=== PATIENT | female | born 1945 | race Caucasian/White ===

== ENCOUNTER 2018-01-01 09:29 | Inpatient (IN) | payer MEDICARE, BC ==
--- NOTE | 2018-01-01 10:18 | EDM.PDOC ---
ED HPI GENERAL MEDICAL PROBLEM - General Chief Complaint: Lower Extremity Injury/Pain Stated Complaint: FELL Time Seen by Provider: 01/01/18 10:05 Source of Information: Reports: Patient History Limitations: Reports: No Limitations - History of Present Illness INITIAL COMMENTS - FREE TEXT/NARRATIVE: She fell while at home; she has some mild pain to the left leg; it is noted to be shorter. She states while laying there she has no pain; if she moves or tries to put weight on it, she has pain. Denies hitting her head. No chest pain or SOB. 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: Neurological History: Reports: Other (See Below) Other Neuro History: geonburet - Infectious Disease History Infectious Disease History: Reports: Chicken Pox Social & Family History - Tobacco Use Smoking Status *Q: Current Every Day Smoker Years of Tobacco use: 40 Packs/Tins Daily: 0.5 Used Tobacco, but Quit: No Second Hand Smoke Exposure: Yes - Caffeine Use Caffeine Use: Reports: Coffee - Recreational Drug Use Recreational Drug Use: No Review of Systems - Review of Systems Review Of Systems: See Below Eyes: Reports: No Symptoms Respiratory: Reports: No Symptoms Cardiovascular: Reports: No Symptoms GI/Abdominal: Reports: No Symptoms Genitourinary: Reports: No Symptoms Musculoskeletal: Reports: Other (left hip pain) Skin: Reports: No Symptoms Neurological: Reports: No Symptoms Psychiatric: Reports: No Symptoms ED EXAM, GENERAL - Physical Exam Exam: See Below Exam Limited By: No Limitations General Appearance: Alert, WD/WN, No Apparent Distress. No: Moderate Distress Eye Exam: Bilateral Eye: EOMI, PERRL Ears: Normal External Exam Throat/Mouth: Normal Inspection, Normal Oropharynx, No Airway Compromise Head: Atraumatic, Normocephalic Neck: Supple, Non-Tender, Full Range of Motion Respiratory/Chest: No Respiratory Distress, Lungs Clear, Normal Breath Sounds Cardiovascular: Regular Rate, Rhythm GI/Abdominal: Normal Bowel Sounds, Soft Back Exam: Normal Inspection, Full Range of Motion Extremities: Other (left leg is shorter than right; limited rom, +dp and pt pulses. +sensation) Neurological: Alert, Oriented, CN II-XII Intact Psychiatric: Normal Affect, Normal Mood Skin Exam: Warm, Dry Course - Vital Signs Last Recorded V/S: Last Vital Signs Temp 96.6 F 01/01/18 09:48 Pulse 88 01/01/18 09:48 Resp 15 01/01/18 09:48 BP 165/85 H 01/01/18 09:48 Pulse Ox 95 01/01/18 09:48 - Orders/Labs/Meds Orders: Active Orders 24 hr Category Date Time Status Patient Status Manage Transfer [TRANSFER] Routine ADT 01/01/18 11:35 Active EKG Documentation Completion [RC] ASDIRECTED Care 01/01/18 10:51 Active Urinary Catheter Assessment [RC] ASDIRECTED Care 01/01/18 10:06 Active Urinary Catheter Insertion [Insert Urinary Catheter] [ Care 01/01/18 10:15 Ordered OM.PC] Q24H NPO Now [Nothing per Oral Now Diet] [DIET] Diet 01/01/18 Lunch Active Chest 1V Frontal [CR] Stat Exams 01/01/18 11:01 Taken UA W/MICROSCOPIC [URIN] Stat Lab 01/01/18 10:15 Ordered HYDROmorphone [Dilaudid] Med 01/01/18 11:06 Active 1 mg IVPUSH Q1H PRN Resuscitation Status Routine Resus Stat 01/01/18 11:37 Ordered EKG 12 Lead [EK] Routine Ther 01/01/18 10:50 Ordered Medication Orders Hydromorphone HCl (Dilaudid) 1 mg IVPUSH Q1H PRN PRN Reason: Pain Last Admin: 01/01/18 11:20 Dose: 1 mg Labs: Laboratory Tests 01/01/18 01/01/18 01/01/18 Range/Units 10:15 10:50 10:50 WBC 10.8 (4.5-11.0) K/uL RBC 4.83 (3.30-5.50) M/uL Hgb 14.8 (12.0-15.0) g/dL Hct 44.4 (36.0-48.0) % MCV 92 (80-98) fL MCH 31 (27-31) pg MCHC 33 (32-36) % Plt Count 414 H (150-400) K/uL Neut % (Auto) 71 H (36-66) % Lymph % (Auto) 21 L (24-44) % [place] % (Auto) 6 (2-6) % Eos % (Auto) 1 L (2-4) % Baso % (Auto) 0 (0-1) % Sodium 138 L (140-148) mmol/L Potassium 4.1 (3.6-5.2) mmol/L Chloride 102 (100-108) mmol/L Carbon Dioxide 22 (21-32) mmol/L Anion Gap 18.1 H (5.0-14.0) mmol/L BUN 12 (7-18) mg/dL Creatinine 0.6 (0.6-1.0) mg/dL Est Cr Clr Drug Dosing 80.51 mL/min Estimated GFR (MDRD) > 60 (>60) Glucose 149 H (74-106) mg/dL Calcium 8.6 (8.5-10.1) mg/dL Total Bilirubin 0.2 (0.2-1.0) mg/dL AST 4 L (15-37) U/L ALT 20 (12-78) U/L Alkaline Phosphatase 86 (46-116) U/L Total Protein 7.1 (6.4-8.2) g/dL Albumin 3.8 (3.4-5.0) g/dL Globulin 3.3 (2.3-3.5) g/dL Albumin/Globulin Ratio 1.2 (1.2-2.2) Urine Color Yellow Urine Appearance Clear Urine pH 5.0 (4.5-8.0) Ur Specific [place] 1.010 (1.008-1.030) Urine Protein Negative (NEGATIVE) mg/dL Urine Glucose (UA) Normal (NEGATIVE) mg/dL Urine Ketones Negative (NEGATIVE) mg/dL Urine Occult Blood Negative (NEGATIVE) Urine Nitrite Negative (NEGATIVE) Urine Bilirubin Negative (NEGATIVE) Urine Urobilinogen Normal (NORMAL) mg/dL Ur Leukocyte Esterase Negative (NEGATIVE) Urine RBC 0-5 (0-5) Urine WBC 0-5 (0-5) Ur Epithelial Cells Rare Amorphous Sediment Not seen Urine Bacteria Not seen Urine Mucus Not seen Meds: Medications Generic Name Dose Route Start Last Admin Trade Name Freq PRN Reason Stop Dose Admin Hydromorphone HCl 1 mg 01/01/18 11:06 01/01/18 11:20 Dilaudid IVPUSH 1 mg Q1H PRN Administration Pain - Re-Assessments/Exams Free Text/Narrative Re-Assessment/Exam: 01/01/18 10:55 xray shows comminuted intertrochanteric fracture of left hip with medial angulation of the major distal fracture fragment. Departure - Departure Time of Disposition: 11:45 Disposition: Admitted As Inpatient 67 Condition: Fair Clinical Impression: Closed left hip fracture, Intertrochanteric fracture, hip - Discharge Information Referrals: Sai Jaime MD [Primary Care Provider] - Forms: ED Department Discharge ED Communication - ED Communication Date/Time Date: 01/01/18 Time Called: 10:56 - Discussed Case With (1) Discussed Case With (1): Other (paged orthopedic, Dr. Lea; plan is to take her to surgery today;) Person/s Notified (1): Kishor Toscano (he will come and admit patient) - Problem List Review Problem List Initiated/Reviewed/Updated: Yes - My Orders Last 24 Hours: My Active Orders 01/01/18 10:06 Urinary Catheter Assessment [RC] ASDIRECTED 01/01/18 10:15 Urinary Catheter Insertion [Insert Urinary Catheter] [OM.PC] Q24H UA W/MICROSCOPIC [URIN] Stat 01/01/18 10:50 EKG 12 Lead [EK] Routine 01/01/18 10:51 EKG Documentation Completion [RC] ASDIRECTED 01/01/18 11:01 Chest 1V Frontal [CR] Stat 01/01/18 11:06 HYDROmorphone [Dilaudid] 1 mg IVPUSH Q1H PRN 01/01/18 Lunch NPO Now [Nothing per Oral Now Diet] [DIET] - Assessment/Plan Last 24 Hours: My Active Orders 01/01/18 10:06 Urinary Catheter Assessment [RC] ASDIRECTED 01/01/18 10:15 Urinary Catheter Insertion [Insert Urinary Catheter] [OM.PC] Q24H UA W/MICROSCOPIC [URIN] Stat 01/01/18 10:50 EKG 12 Lead [EK] Routine 01/01/18 10:51 EKG Documentation Completion [RC] ASDIRECTED 01/01/18 11:01 Chest 1V Frontal [CR] Stat 01/01/18 11:06 HYDROmorphone [Dilaudid] 1 mg IVPUSH Q1H PRN 01/01/18 Lunch NPO Now [Nothing per Oral Now Diet] [DIET]
--- NOTE | 2018-01-01 10:51 | CR ---
Hip Min 1V w Pelvis Lt INDICATION: fell, left hip pain COMPARISON: None FINDINGS: 3 views. Comminuted intertrochanteric fracture left hip with medial angulation of the major distal fracture fr agment.
[2018-01-01] MEDS ORDERED: HYDROmorphone 1 MG/ML Syringe IVPUSH PRN (11:06)
--- NOTE | 2018-01-01 11:49 | PCM.HP ---
H&P History of Present Illness - General Date of Service: 01/01/18 Admit Problem/Dx: Admission Diagnosis/Problem Admission Diagnosis/Problem Fracture of hip Source of Information: Patient, Provider History Limitations: Reports: No Limitations - History of Present Illness Initial Comments - Free Text/Narative: Eloise presents to the emergency room today with left hip pain. She reports that she was making her bed this morning and got tangled up in the comforter and fell down striking her left hip on the floor. She had immediate sharp and severe pain in the left hip. The pain is worse with any sort of movement but comfortable with rest. She has never had pain like this before. She reports things were as usual prior to the fall and has not had recent difficulties with fevers, chills, shortness of breath or abdominal pain. No recent infections. She is able to walk at least 4 blocks and is limited by weakness in her legs with her history of Guillain-Xiong syndrome. She has never had general anesthesia in the past. Workup in the emergency room revealed evidence for an intertrochanteric fracture of the left hip area and she will be admitted for surgical management. 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: Neurological History: Reports: Other (See Below) Other Neuro History: geonburet - Infectious Disease History Infectious Disease History: Reports: Chicken Pox Social & Family History - Family History Neurological: Reports: CVA (Mother in her 80s) Other Family History: No family history of difficulty with anesthesia - Tobacco Use Smoking Status *Q: Current Every Day Smoker Years of Tobacco use: 40 Packs/Tins Daily: 0.5 Used Tobacco, but Quit: No Second Hand Smoke Exposure: Yes - Caffeine Use Caffeine Use: Reports: Coffee - Alcohol Use Alcohol Use History: No - Recreational Drug Use Recreational Drug Use: No H&P Review of Systems - Review of Systems: Review Of Systems: See Below Free Text/Narrative: A complete 12 point review of systems was obtained. Pertinent positives and negatives are noted in the history of present illness. All other systems were reviewed and were negative except as noted. Exam - Exam Exam: See Below - Vital Signs Vital Signs: Last Vital Signs Temp 35.9 C 01/01/18 09:48 Pulse 88 01/01/18 09:48 Resp 15 01/01/18 09:48 BP 165/85 H 01/01/18 09:48 Pulse Ox 95 01/01/18 09:48 Weight: 68.039 kg - Exam Quality Assessment: No: Supplemental Oxygen General: Alert, Oriented, Cooperative. No: Mild Distress HEENT: Conjunctiva Clear, Mucosa Moist & [place], Pupils Equal. No: Scleral Icterus Neck: Supple, Trachea Midline. No: Lymphadenopathy Lungs: Clear to Auscultation, Normal Respiratory Effort Cardiovascular: Regular Rate, Regular Rhythm. No: Systolic Murmur GI/Abdominal Exam: Normal Bowel Sounds, Soft, Non-Tender, No Distention Back Exam: Normal Inspection, Full Range of Motion Extremities: No Pedal Edema, Other (Left leg shortened and externally rotated). No: Increased Warmth Peripheral Pulses: 2+: Dorsalis Pedis (L), Dorsalis Pedis (R) Skin: Warm, Dry Neuro Extensive - Mental Status: Alert, Oriented x3, Nl Response to Commands Neuro Extensive - Motor, Sensory, Reflexes: CN II-XII Intact. No: Dysarthria, Abnormal Motor, Tremor Psychiatric: Alert, Normal Affect - Patient Data Lab Results Last 24 hrs: Laboratory Results - last 24 hr 01/01/18 01/01/18 01/01/18 Range/Units 10:15 10:50 10:50 WBC 10.8 (4.5-11.0) K/uL RBC 4.83 (3.30-5.50) M/uL Hgb 14.8 (12.0-15.0) g/dL Hct 44.4 (36.0-48.0) % MCV 92 (80-98) fL MCH 31 (27-31) pg MCHC 33 (32-36) % Plt Count 414 H (150-400) K/uL Neut % (Auto) 71 H (36-66) % Lymph % (Auto) 21 L (24-44) % [place] % (Auto) 6 (2-6) % Eos % (Auto) 1 L (2-4) % Baso % (Auto) 0 (0-1) % Sodium 138 L (140-148) mmol/L Potassium 4.1 (3.6-5.2) mmol/L Chloride 102 (100-108) mmol/L Carbon Dioxide 22 (21-32) mmol/L Anion Gap 18.1 H (5.0-14.0) mmol/L BUN 12 (7-18) mg/dL Creatinine 0.6 (0.6-1.0) mg/dL Est Cr Clr Drug Dosing 80.51 mL/min Estimated GFR (MDRD) > 60 (>60) Glucose 149 H (74-106) mg/dL Calcium 8.6 (8.5-10.1) mg/dL Total Bilirubin 0.2 (0.2-1.0) mg/dL AST 4 L (15-37) U/L ALT 20 (12-78) U/L Alkaline Phosphatase 86 (46-116) U/L Total Protein 7.1 (6.4-8.2) g/dL Albumin 3.8 (3.4-5.0) g/dL Globulin 3.3 (2.3-3.5) g/dL Albumin/Globulin Ratio 1.2 (1.2-2.2) Urine Color Yellow Urine Appearance Clear Urine pH 5.0 (4.5-8.0) Ur Specific [place] 1.010 (1.008-1.030) Urine Protein Negative (NEGATIVE) mg/dL Urine Glucose (UA) Normal (NEGATIVE) mg/dL Urine Ketones Negative (NEGATIVE) mg/dL Urine Occult Blood Negative (NEGATIVE) Urine Nitrite Negative (NEGATIVE) Urine Bilirubin Negative (NEGATIVE) Urine Urobilinogen Normal (NORMAL) mg/dL Ur Leukocyte Esterase Negative (NEGATIVE) Urine RBC 0-5 (0-5) Urine WBC 0-5 (0-5) Ur Epithelial Cells Rare Amorphous Sediment Not seen Urine Bacteria Not seen Urine Mucus Not seen Result Diagrams: 01/01/18 10:50 01/01/18 10:50 Imaging Impressions Last 24 hrs: Left hip x-ray - images personally reviewed - there is evidence for a comminuted intertrochanteric fracture of the left hip. *Q Meaningful Use (ADM) - VTE *Q VTE Pharmacological Contraindications *Q: Patient Scheduled Surgery - VTE Risk Assess *Q Each Risk Factor Represents 1 Point: None Total Score 1 Point Risk Factors: 0 Each Risk Factor Represents 2 Points: Age 60 - 74 Years Total Score 2 Point Risk Factors: 2 Each Risk Factor Represents 3 Points: None Total Score 3 Point Risk Factors: 0 Each Risk Factor Represents 5 Points: Hip, Pelvis or Leg Fracture, Less than 1 month Total Score 5 Point Risk Factors: 5 Venous Thromboembolism Risk Factor Score *Q: 7 - Problem List (1) Fracture of hip, left, closed SNOMED Code(s): 422462893 ICD Code: S72.002A - FRACTURE OF UNSP PART OF NECK OF LEFT FEMUR, INIT Status: Acute Current Visit: Yes Qualifiers: Encounter type: initial encounter Qualified Code(s): S72.002A - Fracture of unspecified part of neck of left femur, initial encounter for closed fracture (2) Tobacco dependence SNOMED Code(s): 34809543 ICD Code: F17.200 - NICOTINE DEPENDENCE, UNSPECIFIED, UNCOMPLICATED Status : Chronic Current Visit: Yes Problem List Initiated/Reviewed/Updated: Yes Orders Last 24hrs: Active Orders 24 hr Category Date Time Status Patient Status Manage Transfer [TRANSFER] Routine ADT 01/01/18 11:35 Ordered EKG Documentation Completion [RC] ASDIRECTED Care 01/01/18 10:51 Active Urinary Catheter Assessment [RC] ASDIRECTED Care 01/01/18 10:06 Active Urinary Catheter Insertion [Insert Urinary Catheter] [ Care 01/01/18 10:15 Ordered OM.PC] Q24H NPO Now [Nothing per Oral Now Diet] [DIET] Diet 01/01/18 Lunch Active Chest 1V Frontal [CR] Stat Exams 01/01/18 11:01 Taken UA W/MICROSCOPIC [URIN] Stat Lab 01/01/18 10:15 Ordered HYDROmorphone [Dilaudid] Med 01/01/18 11:06 Active 1 mg IVPUSH Q1H PRN Resuscitation Status Routine Resus Stat 01/01/18 11:37 Ordered EKG 12 Lead [EK] Routine Ther 01/01/18 10:50 Ordered Medication Orders Hydromorphone HCl (Dilaudid) 1 mg IVPUSH Q1H PRN PRN Reason: Pain Last Admin: 01/01/18 11:20 Dose: 1 mg Assessment/Plan Comment:: ASSESSMENT AND PLAN - Intertrochanteric fracture of left hip - surgical intervention planned. Patient is medically optimized and has a relatively low risk at this time. No history of cardiac disease. She is a smoker but does not have a diagnosis of COPD. No personal or family history of difficulty with anesthesia. I believe she is in optimal achievable medical condition for the proposed urgent surgery. -Consultation with Dr. Lea for surgical intervention -Pain control -Physical therapy -IV fluids Tobacco dependence - Patient is interested in a nicotine patch. 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 She also has a neurogenic bladder because of this. Maintenance issues - - DVT prophylaxis - mechanical - GI prophylaxis - Not indicated - Nutrition - Nothing by mouth until after surgery - [place] catheter - Will be placed with history of a neurogenic bladder and chronic retention requiring straight catheterization CODE STATUS - Full code Admission justification - This patient will be admitted for inpatient services and is medically appropriate meeting medical necessity for inpatient admission as outlined in my documentation. I reasonably expect the patient will require inpatient services that span a period time over 2 midnights. I reasonably expect this patient to be discharged or transferred within 96 hours [facility]. Disposition - Anticipate discharge to home with her and home care Primary care physician - none Kishor Toscano M.D.
[2018-01-01] MEDS ORDERED: Albuterol 0.083% 2.5 MG/3 ML Neb Soln NEB PRN (12:42)
[2018-01-01] MEDS ORDERED: Polyethylene Glycol 3350 Powder 17 GM Packet PO PRN (12:42)
[2018-01-01] MEDS ORDERED: Ondansetron 4 MG Tab.DIS PO PRN (12:42)
[2018-01-01] MEDS ORDERED: fentaNYL 100 MCG/2 ML SDV ONE (12:51)
[2018-01-01] MEDS ORDERED: Propofol 200 MG/20 ML SDV ONE ×2 (12:52→16:28)
[2018-01-01] MEDS ORDERED: Midazolam 1 MG/ML 2 ML SDV ONE (12:52)
[2018-01-01] MEDS ORDERED: Bupivacaine 0.75%/D5W 2 ML Amp ONE (12:54)
[2018-01-01] MEDS: Lactated Ringers 1,000 ML IV SCH (13:31)
[2018-01-01] MEDS: HYDROmorphone 0.5 MG/0.5 ML Syringe IVPUSH PRN ×2 (13:32→21:52)
[2018-01-01] MEDS: ceFAZolin 2 GM in Premix Bag 1 BAG IV ONE ×2 (15:40→18:32)
[2018-01-01] MEDS ORDERED: Phenylephrine 1% 10 MG/ML SDV ONE (16:24)
[2018-01-01] MEDS ORDERED: ePHEDrine 50 MG/ML SDV ONE (16:27)
[2018-01-01] MEDS: Bupivacaine 0.5%/EPINEPHrine 1:200,000 50 ML MDV ONE ×2 (16:29→16:45)
[2018-01-01] MEDS: Povidone-Iodine 10% Soln 118.25 ML Bottle ONE ×2 (16:30→16:35)
[2018-01-01] MEDS ORDERED: Lactated Ringers 1,000 ML ONE (16:55)
[2018-01-01] MEDS: Nicotine 14 MG/24 Hr Patch TRDERM SCH (18:31)
[2018-01-01] MEDS: oxyCODONE 5 MG Tab PO PRN (18:34)
[2018-01-01] MEDS: ceFAZolin 2 GM in Premix Bag 1 BAG IV SCH (21:45)
--- NOTE | 2018-01-01 22:49 | OR ---
DATE OF PROCEDURE: 01/01/2018 PREOPERATIVE DIAGNOSIS: Left hip subtrochanteric fracture and intertrochanteric extension. POSTOPERATIVE DIAGNOSIS: Left hip subtrochanteric fracture and intertrochanteric extension. PROCEDURE: Left hip cephalomedullary nailing. ANESTHESIA: Spinal plus conscious sedation. FLUID: Lactated Ringer solution. ESTIMATED BLOOD LOSS: 100 mL. COMPLICATION: None. SPECIMEN: None. DISCHARGE DISPOSITION: Stable to PACU. HISTORY AND INDICATIONS FOR THE PROCEDURE: The patient fell earlier today. She was brought to the emergency department. Preoperative imaging confirmed the above-mentioned diagnosis, she was admitted to the hospital service and optimized preoperatively. I did see the patient on the floor. Risks and benefits of the procedure were explained to the patient. Informed consent was obtained. DETAIL OF PROCEDURE: The patient was seen preoperatively by myself and the anesthesia staff in preop holding area where the operative site was marked. She was brought to the operative suite by Anesthesia staff where spinal anesthesia was administered plus conscious sedation. She was placed on to a trauma table. Both of her lower extremities were placed into traction boots. All extremities were found to be well padded. Left lower extremity was then prepped and draped in a sterile manner. Time-out was called identifying the correct patient, correct procedure, the correct site, and the antibiotics had been begun within appropriate period of time. A sterilely draped fluoroscopy unit was then brought in. Under AP visualization, an incision was made proximal to greater trochanter. I then used an awl to go just medial to the tip of the greater trochanter medially almost to the piriformis starting point in order to put the fracture more valgus. I then advanced the awl and then placed a guidewire distally. This measured 380 mm. I then used a 13 reamer over the ball- tipped guide and then a 16 for the proximal portion. I then inserted my nail which was a 380 mm x 12 mm nail. This did have some distractive affect on the proximal fracture site in its intertrochanteric extension, but we went ahead and proceeded. I then did my incision using the guide for the screw into the femoral head and then placed the guidewire under AP. I then had to redo this several times on to the lateral aspect as I wanted to go more posteriorly. I then was able to place the guidewire with the tip apex distance less than 2.5 cm that measured 90 mm. I then reamed the lateral cortex and then reamed into the femoral head and then placed my 90 mm nail. I then compressed this, which did compress nicely. We then statically locked this and then removed the outrigger guide. I then took final AP and lateral films proximally. I then focused on my perfect new [place] technique to place a 44 mm screw through the slotted hole. I then took final films there. We then copiously irrigated with Betadine infused irrigation and then covered with a sterile dressing. The patient was then transferred to hospital bed and taken to the PACU in stable condition. Ruslan Lea DO /[id number]
[2018-01-02] MEDS: Lactated Ringers 1,000 ML IV SCH (00:30)
[2018-01-02] MEDS: oxyCODONE 5 MG Tab PO PRN ×3 (02:25→20:49)
[2018-01-02] MEDS: ceFAZolin 2 GM in Premix Bag 1 BAG IV SCH ×2 (05:16→13:54)
[2018-01-02] MEDS: Nicotine 14 MG/24 Hr Patch TRDERM SCH (09:40)
--- NOTE | 2018-01-02 10:29 | PCM.PN ---
- General Info Date of Service: 01/02/18 Functional Status: Reports: Pain Controlled, Tolerating Diet - Review of Systems General: Reports: No Symptoms HEENT: Reports: No Symptoms Pulmonary: Reports: No Symptoms Cardiovascular: Reports: No Symptoms Gastrointestinal: Reports: No Symptoms Genitourinary: Reports: No Symptoms Musculoskeletal: Reports: Leg Pain, Joint Pain Skin: Reports: No Symptoms Neurological: Reports: No Symptoms Psychiatric: Reports: No Symptoms - Patient Data Vitals - Most Recent: Last Vital Signs Temp 99.3 F 01/02/18 07:00 Pulse 97 01/02/18 07:00 Resp 16 01/02/18 07:00 BP 100/57 L 01/02/18 07:00 Pulse Ox 90 L 01/02/18 07:00 Weight - Most Recent: 150 lb I&O - Last 24 Hours: Intake & Output 01/01/18 01/02/18 01/02/18 22:59 06:59 14:59 Intake Total 1380 2115 360 Output Total 550 950 Balance 830 1165 360 Lab Results Last 24 Hours: Laboratory Results - last 24 hr 01/01/18 01/01/18 01/01/18 Range/Units 10:15 10:50 10:50 WBC 10.8 (4.5-11.0) K/uL RBC 4.83 (3.30-5.50) M/uL Hgb 14.8 (12.0-15.0) g/dL Hct 44.4 (36.0-48.0) % MCV 92 (80-98) fL MCH 31 (27-31) pg MCHC 33 (32-36) % Plt Count 414 H (150-400) K/uL Neut % (Auto) 71 H (36-66) % Lymph % (Auto) 21 L (24-44) % [place] % (Auto) 6 (2-6) % Eos % (Auto) 1 L (2-4) % Baso % (Auto) 0 (0-1) % Sodium 138 L (140-148) mmol/L Potassium 4.1 (3.6-5.2) mmol/L Chloride 102 (100-108) mmol/L Carbon Dioxide 22 (21-32) mmol/L Anion Gap 18.1 H (5.0-14.0) mmol/L BUN 12 (7-18) mg/dL Creatinine 0.6 (0.6-1.0) mg/dL Est Cr Clr Drug Dosing 80.51 mL/min Estimated GFR (MDRD) > 60 (>60) Glucose 149 H (74-106) mg/dL Calcium 8.6 (8.5-10.1) mg/dL Total Bilirubin 0.2 (0.2-1.0) mg/dL AST 4 L (15-37) U/L ALT 20 (12-78) U/L Alkaline Phosphatase 86 (46-116) U/L Total Protein 7.1 (6.4-8.2) g/dL Albumin 3.8 (3.4-5.0) g/dL Globulin 3.3 (2.3-3.5) g/dL Albumin/Globulin Ratio 1.2 (1.2-2.2) Urine Color Yellow Urine Appearance Clear Urine pH 5.0 (4.5-8.0) Ur Specific [place] 1.010 (1.008-1.030) Urine Protein Negative (NEGATIVE) mg/dL Urine Glucose (UA) Normal (NEGATIVE) mg/dL Urine Ketones Negative (NEGATIVE) mg/dL Urine Occult Blood Negative (NEGATIVE) Urine Nitrite Negative (NEGATIVE) Urine Bilirubin Negative (NEGATIVE) Urine Urobilinogen Normal (NORMAL) mg/dL Ur Leukocyte Esterase Negative (NEGATIVE) Urine RBC 0-5 (0-5) Urine WBC 0-5 (0-5) Ur Epithelial Cells Rare Amorphous Sediment Not seen Urine Bacteria Not seen Urine Mucus Not seen 01/02/18 01/02/18 Range/Units 05:44 05:44 WBC 7.1 (4.5-11.0) K/uL RBC 3.45 (3.30-5.50) M/uL Hgb 10.5 L D (12.0-15.0) g/dL Hct 32.4 L (36.0-48.0) % MCV 94 (80-98) fL MCH 30 (27-31) pg MCHC 32 (32-36) % Plt Count 308 (150-400) K/uL Neut % (Auto) (36-66) % Lymph % (Auto) (24-44) % [place] % (Auto) (2-6) % Eos % (Auto) (2-4) % Baso % (Auto) (0-1) % Sodium 140 (140-148) mmol/L Potassium 4.4 (3.6-5.2) mmol/L Chloride 105 (100-108) mmol/L Carbon Dioxide 27 (21-32) mmol/L Anion Gap 8.0 (5.0-14.0) mmol/L BUN 11 (7-18) mg/dL Creatinine 0.6 (0.6-1.0) mg/dL Est Cr Clr Drug Dosing 80.51 mL/min Estimated GFR (MDRD) > 60 (>60) Glucose 137 H (74-106) mg/dL Calcium 8.2 L (8.5-10.1) mg/dL Total Bilirubin (0.2-1.0) mg/dL AST (15-37) U/L ALT (12-78) U/L Alkaline Phosphatase (46-116) U/L Total Protein (6.4-8.2) g/dL Albumin (3.4-5.0) g/dL Globulin (2.3-3.5) g/dL Albumin/Globulin Ratio (1.2-2.2) Urine Color Urine Appearance Urine pH (4.5-8.0) Ur Specific [place] (1.008-1.030) Urine Protein (NEGATIVE) mg/dL Urine Glucose (UA) (NEGATIVE) mg/dL Urine Ketones (NEGATIVE) mg/dL Urine Occult Blood (NEGATIVE) Urine Nitrite (NEGATIVE) Urine Bilirubin (NEGATIVE) Urine Urobilinogen (NORMAL) mg/dL Ur Leukocyte Esterase (NEGATIVE) Urine RBC (0-5) Urine WBC (0-5) Ur Epithelial Cells Amorphous Sediment Urine Bacteria Urine Mucus Med Orders - Current: Current Medications Acetaminophen (Tylenol) 650 mg PO Q4H PRN PRN Reason: Pain (Mild 1-3)/fever Albuterol (Proventil Neb Soln) 2.5 mg NEB Q4H PRN PRN Reason: Shortness Of Breath/wheezing Last Admin: 01/01/18 14:29 Dose: 2.5 mg Hydromorphone HCl (Dilaudid) 0.5 - 1 mg IVPUSH Q2H PRN PRN Reason: Pain (severe 7-10) Last Admin: 01/01/18 21:52 Dose: 1 mg Cefazolin Sodium/Dextrose 2 gm (/ Premix) 50 mls @ 100 mls/hr IV Q8H [facility] Stop: 01/02/18 14:29 Last Admin: 01/02/18 05:16 Dose: 100 mls/hr Nicotine (Habitrol) 14 mg TRDERM DAILY [facility] Last Admin: 01/02/18 09:40 Dose: 14 mg Ondansetron HCl (Zofran Odt) 4 mg PO Q6H PRN PRN Reason: Nausea able to take PO Last Admin: 01/01/18 23:20 Dose: 4 mg Oxycodone HCl (Oxycodone) 5 - 10 mg PO Q4H PRN PRN Reason: Pain (moderate 4-6) Last Admin: 01/02/18 09:40 Dose: 10 mg Polyethylene Glycol (Miralax) 17 gm PO DAILY PRN PRN Reason: Constipation Senna/Docusate Sodium (Senna Plus) 1 tab PO BID PRN PRN Reason: Constipation Last Admin: 01/01/18 21:52 Dose: 1 tab Discontinued Medications Bupivacaine HCl/Dextrose (Marcaine 0.75% Spinal) Confirm Administered Dose 2 ml .ROUTE .STK-MED ONE Stop: 01/01/18 12:55 Bupivacaine HCl/Epinephrine Bitart (Marcaine 0.5%/Epinephrine 1:200,000) Confirm Administered Dose 50 ml .ROUTE .STK-MED ONE Stop: 01/01/18 13:43 Last Admin: 01/01/18 16:45 Dose: 20 ml Ephedrine Sulfate (Ephedrine Sulfate) Confirm Administered Dose 50 mg .ROUTE .STK-MED ONE Stop: 01/01/18 16:28 Fentanyl (Sublimaze) Confirm Administered Dose 100 mcg .ROUTE .STK-MED ONE Stop: 01/01/18 12:52 Hydromorphone HCl (Dilaudid) 1 mg IVPUSH Q1H PRN PRN Reason: Pain Last Admin: 01/01/18 11:20 Dose: 1 mg Lactated Ringer's (Ringers, Lactated) 1,000 mls @ 125 mls/hr IV ASDIRECTED [facility] Last Admin: 01/02/18 00:30 Dose: 125 mls/hr Cefazolin Sodium/Dextrose 2 gm (/ Premix) 50 mls @ 100 mls/hr IV ONETIME ONE Stop: 01/01/18 15:29 Last Admin: 01/01/18 18:32 Dose: Not Given Lactated Ringer's (Ringers, Lactated) Confirm Administered Dose 1,000 mls @ as directed .ROUTE .STK-MED ONE Stop: 01/01/18 16:56 Midazolam HCl (Versed 1 Mg/Ml) Confirm Administered Dose 2 mg .ROUTE .STK-MED ONE Stop: 01/01/18 12:53 Phenylephrine HCl (Ramana-Synephrine) Confirm Administered Dose 10 mg .ROUTE .STK- MED ONE Stop: 01/01/18 16:25 Povidone Iodine (Betadine 10% Soln) 1 ml .ROUTE .STK-MED ONE Stop: 01/01/18 14:01 Last Admin: 01/01/18 16:35 Dose: 30 ml Propofol (Diprivan 20 Ml) Confirm Administered Dose 200 mg .ROUTE .STK-MED ONE Stop: 01/01/18 12:53 Propofol (Diprivan 20 Ml) Confirm Administered Dose 200 mg .ROUTE .STK-MED ONE Stop: 01/01/18 16:29 - Exam General: Alert, Oriented HEENT: Pupils Equal, EOMI, Mucous Membr. Moist/[place] Neck: Supple, Trachea Midline Lungs: Normal Respiratory Effort Extremities: Joint Swelling, Leg Pain, Limited Range of Motion Skin: Warm, Dry, Intact Wound/Incisions: Healing Well, Dressing Dry and Intact, No Drainage Neurological: No New Focal Deficit Psy/Mental Status: Alert, Normal Affect, Normal Mood - Problem List Review Problem List Initiated/Reviewed/Updated: Yes - My Orders Last 24 Hours: My Active Orders 01/01/18 15:00 OR Fluoro-NC [CR] Routine 01/01/18 17:00 OT Evaluation and Treatment [CONS] Routine Weight bearing status [OM.PC] Routine 01/01/18 22:00 ceFAZolin [Ancef] 2 gm Premix Bag 1 bag IV Q8H 01/01/18 Dinner Advance Diet Instructions [DIET] - Plan Plan:: Assessment: Postoperative day 1 left hip cephalo-medullary nail. Plan:Continue with physical therapy, occupational therapy, and DVT prophylaxis. She did well with physical therapy and was able to walk around the room with a walker. Her pain is controlled. She answers all questions appropriately. We'll keep her overnight to see if she does.
--- NOTE | 2018-01-02 11:54 | PCM.PN ---
- General Info Date of Service: 01/02/18 Functional Status: Reports: Pain Controlled, Tolerating Diet, Ambulating - Review of Systems Musculoskeletal: Reports: Joint Pain Systems Review Comment:: No acute events overnight. Patient did very well with surgery yesterday. Hip pain is minimal. She has been up and moving around with a walker. No complaints of shortness of breath. One episode of emesis yesterday evening. - Patient Data Vitals - Most Recent: Last Vital Signs Temp 37.7 C 01/02/18 11:11 Pulse 86 01/02/18 11:11 Resp 14 01/02/18 11:11 BP 106/55 L 01/02/18 11:11 Pulse Ox 90 L 01/02/18 11:11 Weight - Most Recent: 68.039 kg I&O - Last 24 Hours: Intake & Output 01/01/18 01/02/18 01/02/18 22:59 06:59 14:59 Intake Total 1380 2115 360 Output Total 550 950 Balance 830 1165 360 Lab Results Last 24 Hours: Laboratory Results - last 24 hr 01/02/18 01/02/18 Range/Units 05:44 05:44 WBC 7.1 (4.5-11.0) K/uL RBC 3.45 (3.30-5.50) M/uL Hgb 10.5 L D (12.0-15.0) g/dL Hct 32.4 L (36.0-48.0) % MCV 94 (80-98) fL MCH 30 (27-31) pg MCHC 32 (32-36) % Plt Count 308 (150-400) K/uL Sodium 140 (140-148) mmol/L Potassium 4.4 (3.6-5.2) mmol/L Chloride 105 (100-108) mmol/L Carbon Dioxide 27 (21-32) mmol/L Anion Gap 8.0 (5.0-14.0) mmol/L BUN 11 (7-18) mg/dL Creatinine 0.6 (0.6-1.0) mg/dL Est Cr Clr Drug Dosing 80.51 mL/min Estimated GFR (MDRD) > 60 (>60) Glucose 137 H (74-106) mg/dL Calcium 8.2 L (8.5-10.1) mg/dL Med Orders - Current: Current Medications Acetaminophen (Tylenol) 650 mg PO Q4H PRN PRN Reason: Pain (Mild 1-3)/fever Albuterol (Proventil Neb Soln) 2.5 mg NEB Q4H PRN PRN Reason: Shortness Of Breath/wheezing Last Admin: 01/01/18 14:29 Dose: 2.5 mg Hydromorphone HCl (Dilaudid) 0.5 - 1 mg IVPUSH Q2H PRN PRN Reason: Pain (severe 7-10) Last Admin: 01/01/18 21:52 Dose: 1 mg Cefazolin Sodium/Dextrose 2 gm (/ Premix) 50 mls @ 100 mls/hr IV Q8H [facility] Stop: 01/02/18 14:29 Last Admin: 01/02/18 05:16 Dose: 100 mls/hr Nicotine (Habitrol) 14 mg TRDERM DAILY [facility] Last Admin: 01/02/18 09:40 Dose: 14 mg Ondansetron HCl (Zofran Odt) 4 mg PO Q6H PRN PRN Reason: Nausea able to take PO Last Admin: 01/01/18 23:20 Dose: 4 mg Oxycodone HCl (Oxycodone) 5 - 10 mg PO Q4H PRN PRN Reason: Pain (moderate 4-6) Last Admin: 01/02/18 09:40 Dose: 10 mg Polyethylene Glycol (Miralax) 17 gm PO DAILY PRN PRN Reason: Constipation Senna/Docusate Sodium (Senna Plus) 1 tab PO BID PRN PRN Reason: Constipation Last Admin: 01/01/18 21:52 Dose: 1 tab Discontinued Medications Bupivacaine HCl/Dextrose (Marcaine 0.75% Spinal) Confirm Administered Dose 2 ml .ROUTE .STK-MED ONE Stop: 01/01/18 12:55 Bupivacaine HCl/Epinephrine Bitart (Marc[place] 0.5%/Epinephrine 1:200,000) Confirm Administered Dose 50 ml .ROUTE .STK-MED ONE Stop: 01/01/18 13:43 Last Admin: 01/01/18 16:45 Dose: 20 ml Ephedrine Sulfate (Ephedrine Sulfate) Confirm Administered Dose 50 mg .ROUTE .STK-MED ONE Stop: 01/01/18 16:28 Fentanyl (Sublimaze) Confirm Administered Dose 100 mcg .ROUTE .STK-MED ONE Stop: 01/01/18 12:52 Hydromorphone HCl (Dilaudid) 1 mg IVPUSH Q1H PRN PRN Reason: Pain Last Admin: 01/01/18 11:20 Dose: 1 mg Lactated Ringer's (Ringers, Lactated) 1,000 mls @ 125 mls/hr IV ASDIRECTED [facility] Last Admin: 01/02/18 00:30 Dose: 125 mls/hr Cefazolin Sodium/Dextrose 2 gm (/ Premix) 50 mls @ 100 mls/hr IV ONETIME ONE Stop: 01/01/18 15:29 Last Admin: 01/01/18 18:32 Dose: Not Given Lactated Ringer's (Ringers, Lactated) Confirm Administered Dose 1,000 mls @ as directed .ROUTE .STK-MED ONE Stop: 01/01/18 16:56 Midazolam HCl (Versed 1 Mg/Ml) Confirm Administered Dose 2 mg .ROUTE .STK-MED ONE Stop: 01/01/18 12:53 Phenylephrine HCl (Ramana-Synephrine) Confirm Administered Dose 10 mg .ROUTE .STK- MED ONE Stop: 01/01/18 16:25 Povidone Iodine (Betadine 10% Soln) 1 ml .ROUTE .STK-MED ONE Stop: 01/01/18 14:01 Last Admin: 01/01/18 16:35 Dose: 30 ml Propofol (Diprivan 20 Ml) Confirm Administered Dose 200 mg .ROUTE .STK-MED ONE Stop: 01/01/18 12:53 Propofol (Diprivan 20 Ml) Confirm Administered Dose 200 mg .ROUTE .STK-MED ONE Stop: 01/01/18 16:29 - Exam Quality Assessment: No: Supplemental Oxygen General: Alert, Oriented, Cooperative, No Acute Distress Neck: Supple Lungs: Normal Respiratory Effort GI/Abdominal Exam: No Distention Skin: Warm, Dry Psy/Mental Status: Alert, Normal Affect - Problem List & Annotations (1) Fracture of hip, left, closed SNOMED Code(s): 920551793 Code(s): S72.002A - FRACTURE OF UNSP PART OF NECK OF LEFT FEMUR, INIT Status: Acute Current Visit: Yes Qualifiers: Encounter type: initial encounter Qualified Code(s): S72.002A - Fracture of unspecified part of neck of left femur, initial encounter for closed fracture (2) Tobacco dependence SNOMED Code(s): 36404150 Code(s): F17.200 - NICOTINE DEPENDENCE, UNSPECIFIED, UNCOMPLICATED Status: Chronic Current Visit: Yes - Problem List Review Problem List Initiated/Reviewed/Updated: Yes - My Orders Last 24 Hours: My Active Orders 01/01/18 11:37 Resuscitation Status Routine 01/01/18 12:42 Patient Status [ADT] Routine Bedrest Bedside Commode [RC] ASDIRECTED Intake and Output [RC] QSHIFT Notify Provider Consults [RC] ASDIRECTED Notify Provider Vital Signs [RC] ASDIRECTED Oxygen Therapy [RC] PRN RT Aerosol Therapy [RC] ASDIRECTED VTE/DVT Education [RC] Per Unit Routine Vital Signs [RC] Q4H Consult to Physician [CONS] Routine Acetaminophen [Tylenol] 650 mg PO Q4H PRN Albuterol [Proventil Neb Soln] 2.5 mg NEB Q4H PRN Docusate Sodium/Sennosides [Senna Plus] 1 tab PO BID PRN HYDROmorphone [Dilaudid] 0.5 - 1 mg IVPUSH Q2H PRN Ondansetron [Zofran ODT] 4 mg PO Q6H PRN Polyethylene Glycol 3350 [MiraLAX] 17 gm PO DAILY PRN oxyCODONE 5 - 10 mg PO Q4H PRN Sequential Compression Device [OM.PC] Per Unit Routine VTE Pharmacological Contraindications [AST] Per Unit Routine 01/01/18 13:45 Nicotine [Habitrol] 14 mg TRDERM DAILY 01/02/18 07:00 PT Evaluation and Treatment [CONS] Routine 01/02/18 09:55 Convert IV to Saline Lock [OM.PC] Routine 01/03/18 05:00 HGB [HEMOGLOBIN] [HEME] Timed - Plan Plan:: ASSESSMENT AND PLAN - Intertrochanteric fracture of left hip - postop day 1 status post cephalo- medullary nail placement. Doing well postoperatively. Pain well-controlled. -Pain control -Physical therapy -Saline lock IV -Additional postoperative cares per surgical team Tobacco dependence - Patient is interested in a nicotine patch. 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 She also has a neurogenic bladder because of this. Maintenance issues - - DVT prophylaxis - mechanical - GI prophylaxis - Not indicated - Nutrition - Nothing by mouth until after surgery - [place] catheter - placed with history of a neurogenic bladder and chronic retention requiring straight catheterization. Plan to leave in place today for comfort and to monitor output and will reassess tomorrow. Disposition - Anticipate discharge to home with her and home care Kishor Toscano M.D.
[2018-01-02] MEDS: Acetaminophen 325 MG Tab PO PRN (15:18)
[2018-01-03] MEDS: oxyCODONE 5 MG Tab PO PRN ×3 (04:41→20:56)
[2018-01-03] MEDS: Nicotine 14 MG/24 Hr Patch TRDERM SCH (10:33)
--- NOTE | 2018-01-03 10:34 | CR ---
Chest 1V Frontal INDICATION: pre op COMPARISON: None FINDINGS: AP portable chest. Heart size normal. No infiltrates or pleural effusions.
--- NOTE | 2018-01-03 10:36 | PCM.PN ---
- General Info Date of Service: 01/03/18 Functional Status: Reports: Pain Controlled, Tolerating Diet, Ambulating - Review of Systems General: Denies: Fever Pulmonary: Denies: Shortness of Breath Musculoskeletal: Reports: Leg Pain (left hip) Systems Review Comment:: No acute events overnight. Pain has been well-controlled. Ambulation has been improving with physical therapy. She is using a walker successfully. She has had only low-grade fevers probably related to inflammation from the surgery. Hemoglobin has been stable. No nausea or vomiting. - Patient Data Vitals - Most Recent: Last Vital Signs Temp 37.4 C 01/03/18 07:33 Pulse 94 01/03/18 07:33 Resp 16 01/03/18 07:33 BP 105/57 L 01/03/18 07:33 Pulse Ox 89 L 01/03/18 07:33 Weight - Most Recent: 68.039 kg I&O - Last 24 Hours: Intake & Output 01/02/18 01/03/18 01/03/18 22:59 06:59 14:59 Intake Total 1190 Output Total 750 1000 Balance 440 -1000 Lab Results Last 24 Hours: Laboratory Results - last 24 hr 01/03/18 Range/Units 05:10 Hgb 9.8 L (12.0-15.0) g/dL Med Orders - Current: Current Medications Acetaminophen (Tylenol) 650 mg PO Q4H PRN PRN Reason: Pain (Mild 1-3)/fever Last Admin: 01/02/18 15:18 Dose: 650 mg Albuterol (Proventil Neb Soln) 2.5 mg NEB Q4H PRN PRN Reason: Shortness Of Breath/wheezing Last Admin: 01/01/18 14:29 Dose: 2.5 mg Nicotine (Habitrol) 14 mg TRDERM DAILY [facility] Last Admin: 01/03/18 10:33 Dose: 14 mg Ondansetron HCl (Zofran Odt) 4 mg PO Q6H PRN PRN Reason: Nausea able to take PO Last Admin: 01/01/18 23:20 Dose: 4 mg Oxycodone HCl (Oxycodone) 5 - 10 mg PO Q4H PRN PRN Reason: Pain (moderate 4-6) Last Admin: 01/03/18 04:41 Dose: 10 mg Polyethylene Glycol (Miralax) 17 gm PO DAILY PRN PRN Reason: Constipation Senna/Docusate Sodium (Senna Plus) 1 tab PO BID PRN PRN Reason: Constipation Last Admin: 01/01/18 21:52 Dose: 1 tab Discontinued Medications Bupivacaine HCl/Dextrose (Marcaine 0.75% Spinal) Confirm Administered Dose 2 ml .ROUTE .STK-MED ONE Stop: 01/01/18 12:55 Bupivacaine HCl/Epinephrine Bitart (Marcaine 0.5%/Epinephrine 1:200,000) Confirm Administered Dose 50 ml .ROUTE .STK-MED ONE Stop: 01/01/18 13:43 Last Admin: 01/01/18 16:45 Dose: 20 ml Ephedrine Sulfate (Ephedrine Sulfate) Confirm Administered Dose 50 mg .ROUTE .STK-MED ONE Stop: 01/01/18 16:28 Fentanyl (Sublimaze) Confirm Administered Dose 100 mcg .ROUTE .STK-MED ONE Stop: 01/01/18 12:52 Hydromorphone HCl (Dilaudid) 1 mg IVPUSH Q1H PRN PRN Reason: Pain Last Admin: 01/01/18 11:20 Dose: 1 mg Hydromorphone HCl (Dilaudid) 0.5 - 1 mg IVPUSH Q2H PRN PRN Reason: Pain (severe 7-10) Last Admin: 01/01/18 21:52 Dose: 1 mg Lactated Ringer's (Ringers, Lactated) 1,000 mls @ 125 mls/hr IV ASDIRECTED [facility] Last Admin: 01/02/18 00:30 Dose: 125 mls/hr Cefazolin Sodium/Dextrose 2 gm (/ Premix) 50 mls @ 100 mls/hr IV ONETIME ONE Stop: 01/01/18 15:29 Last Admin: 01/01/18 18:32 Dose: Not Given Lactated Ringer's (Ringers, Lactated) Confirm Administered Dose 1,000 mls @ as directed .ROUTE .STK-MED ONE Stop: 01/01/18 16:56 Cefazolin Sodium/Dextrose 2 gm (/ Premix) 50 mls @ 100 mls/hr IV Q8H [facility] Stop: 01/02/18 14:29 Last Admin: 01/02/18 13:54 Dose: 100 mls/hr Midazolam HCl (Versed 1 Mg/Ml) Confirm Administered Dose 2 mg .ROUTE .STK-MED ONE Stop: 01/01/18 12:53 Phenylephrine HCl (Ramana-Synephrine) Confirm Administered Dose 10 mg .ROUTE .STK- MED ONE Stop: 01/01/18 16:25 Povidone Iodine (Betadine 10% Soln) 1 ml .ROUTE .STK-MED ONE Stop: 01/01/18 14:01 Last Admin: 01/01/18 16:35 Dose: 30 ml Propofol (Diprivan 20 Ml) Confirm Administered Dose 200 mg .ROUTE .STK-MED ONE Stop: 01/01/18 12:53 Propofol (Diprivan 20 Ml) Confirm Administered Dose 200 mg .ROUTE .STK-MED ONE Stop: 01/01/18 16:29 - Exam Quality Assessment: No: Supplemental Oxygen General: Alert, Oriented, Cooperative, No Acute Distress Lungs: Normal Respiratory Effort GI/Abdominal Exam: No Distention Extremities: No Pedal Edema Skin: Warm, Dry Wound/Incisions: Other (proximal dressing dry, middle dressing with dry blood. distal dressing dry ) - Problem List & Annotations (1) Fracture of hip, left, closed SNOMED Code(s): 729803435 Code(s): S72.002A - FRACTURE OF UNSP PART OF NECK OF LEFT FEMUR, INIT Status: Acute Current Visit: Yes Qualifiers: Encounter type: initial encounter Qualified Code(s): S72.002A - Fracture of unspecified part of neck of left femur, initial encounter for closed fracture (2) Tobacco dependence SNOMED Code(s): 21347675 Code(s): F17.200 - NICOTINE DEPENDENCE, UNSPECIFIED, UNCOMPLICATED Status: Chronic Current Visit: Yes - Problem List Review Problem List Initiated/Reviewed/Updated: Yes - My Orders Last 24 Hours: My Active Orders 01/02/18 09:55 Convert IV to Saline Lock [OM.PC] Routine 01/04/18 05:00 HGB [HEMOGLOBIN] [HEME] Timed - Plan Plan:: ASSESSMENT AND PLAN - Intertrochanteric fracture of left hip - postop day 2 status post cephalo- medullary nail placement. Doing well postoperatively. Pain well-controlled. -Pain control -Physical therapy -Saline lock IV -Additional postoperative cares per surgical team Tobacco dependence - Patient is interested in a nicotine patch. 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 She also has a neurogenic bladder because of this. Maintenance issues - - DVT prophylaxis - mechanical - GI prophylaxis - Not indicated - Nutrition - regular diet - [place] catheter - placed with history of a neurogenic bladder and chronic retention requiring straight catheterization. Plan to leave in place today with her neurogenic bladder and remove tomorrow morning Disposition - Anticipate discharge to home with her and home care tomorrow Kishor Toscano M.D.
[2018-01-03] MEDS: Acetaminophen 325 MG Tab PO PRN (15:51)
[2018-01-04] MEDS: oxyCODONE 5 MG Tab PO PRN ×2 (04:09→09:40)
[2018-01-04] MEDS: Nicotine 14 MG/24 Hr Patch TRDERM SCH (08:02)
--- NOTE | 2018-01-04 10:38 | PCM.DCSUM1 ---
Discharge Summary - Hospital Course Brief History: 72-year-old female with tobacco dependence and history of Guillain-Wakpala syndrome who presented to the emergency room with left hip pain. She was admitted for surgical intervention of a left hip intertrochanteric fracture. Diagnosis: Stroke: No - Discharge Data Discharge Date: 01/04/18 Discharge Disposition: Home, Self-Care 01 Condition: Good - Discharge Diagnosis/Problem(s) (1) Fracture of hip, left, closed SNOMED Code(s): 328184552 ICD Code: S72.002A - FRACTURE OF UNSP PART OF NECK OF LEFT FEMUR, INIT Status: Acute Current Visit: Yes Qualifiers: Encounter type: initial encounter Qualified Code(s): S72.002A - Fracture of unspecified part of neck of left femur, initial encounter for closed fracture (2) Tobacco dependence SNOMED Code(s): 34203528 ICD Code: F17.200 - NICOTINE DEPENDENCE, UNSPECIFIED, UNCOMPLICATED Status : Chronic Current Visit: Yes - Patient Summary/Data Consults: Consultations 01/01/18 12:42 Consult to Physician [CONS] Routine Consulting Provider: Ruslan Lea Call Completed to Consulting Physician: Yes Reason for Consult: left hip fracture Person Notified: Dr Lea Date Notified: 01/01/18 Special Instructions: planning surgery later in the day 01/01/18 17:00 OT Evaluation and Treatment [CONS] Routine Please Evaluate and Treat. OT Reason for Consult: Strengthening This query below is only for informational purposes and is not editable. Admission Diagnosis/Problem: Fracture of hip 01/02/18 07:00 PT Evaluation and Treatment [CONS] Routine Please Evaluate and Treat. PT Reason for Consult: Ambulation This query below is only for informational purposes and is not editable. Hospital Course: Eloise presented to the emergency room with left hip pain after tripping and falling at home. Workup in the emergency room revealed an intertrochanteric left hip fracture. She was admitted to the hospital with plan for surgical intervention shortly after admission. She had an uneventful surgical repair of the hip fracture by Dr. Lea. He performed an intramedullary nail procedure. Pain has been well-controlled throughout the hospital stay. She has made steady progress as far as physical therapy and ambulation. She has not had any fevers or complications following surgery. Her hemoglobin did drop from 13 down to around 10 but has remained stable. Incisions appear to be healing well. Overall she has had an uneventful and smooth recovery. She is safe for outpatient management at this time. She is interested in some outpatient physical therapy and this has been set up at [place]. She will be following up with orthopedic surgery in about 2-1/2 weeks. - Patient Instructions Diet: Regular Diet as Tolerated Activity: As Tolerated Driving: Do Not Drive (if taking pain pills) Showering/Bathing: May Shower, No Tub Bathing/Swimming Notify Provider of: Fever, Increased Pain, Swelling and Redness, Drainage Other/Special Instructions: 1. You were in the hospital for operative management of a left hip fracture. You are healing well and improving following surgical intervention. You do not have any weightbearing restrictions on either of your legs. He may return to normal activity but will likely have to work your way back to normal activity slowly. We have placed a referral to physical therapy for outpatient therapy in [place]. 2. You may use acetaminophen 650 mg every 4 hours and/or ibuprofen 600 mg every 6 hours as needed for mild pain. You can use the oxycodone every 4 hours as needed for moderate or severe pain. 3. Please seek medical attention if you develop fever greater than 101, you have severe pain in your hip or if you develop redness or swelling around your incision or of the left leg. - Discharge Plan Prescriptions/Med Rec: oxyCODONE 5 mg PO Q4H PRN #25 tablet PRN Reason: Pain (Moderate 4-6) Home Medications: Home Meds oxyCODONE 5 mg PO Q4H PRN #25 tablet 01/04/18 [Rx] Patient Handouts: Hip Fracture Treated With ORIF, Care After, Preventing Constipation After Surgery Referrals: Yuri Patton, RAMA [Physical Therapist] - 01/07/18 3:00 pm Ruslan Lea DO [Physician] - 01/21/18 9:30 am (January 21, 2018 9 AM xray 9:[address] Lea) - Discharge Summary/Plan Comment DC Time >30 min.: No - Patient Data Vitals - Most Recent: Last Vital Signs Temp 37.3 C 01/04/18 07:16 Pulse 87 01/04/18 07:16 Resp 16 01/04/18 07:16 BP 104/63 01/04/18 07:16 Pulse Ox 92 L 01/04/18 07:16 Weight - Most Recent: 68.039 kg I&O - Last 24 hours: Intake & Output 01/03/18 01/04/18 01/04/18 22:59 06:59 14:59 Intake Total 1890 Output Total 1025 1200 Balance 865 -1200 Lab Results - Last 24 hrs: Laboratory Results - last 24 hr 01/04/18 Range/Units 05:50 Hgb 9.5 L (12.0-15.0) g/dL Med Orders - Current: Current Medications Acetaminophen (Tylenol) 650 mg PO Q4H PRN PRN Reason: Pain (Mild 1-3)/fever Last Admin: 01/03/18 15:51 Dose: 650 mg Albuterol (Proventil Neb Soln) 2.5 mg NEB Q4H PRN PRN Reason: Shortness Of Breath/wheezing Last Admin: 01/01/18 14:29 Dose: 2.5 mg Nicotine (Habitrol) 14 mg TRDERM DAILY AZRA Last Admin: 01/04/18 08:02 Dose: 14 mg Ondansetron HCl (Zofran Odt) 4 mg PO Q6H PRN PRN Reason: Nausea able to take PO Last Admin: 01/01/18 23:20 Dose: 4 mg Oxycodone HCl (Oxycodone) 5 - 10 mg PO Q4H PRN PRN Reason: Pain (moderate 4-6) Last Admin: 01/04/18 09:40 Dose: 10 mg Polyethylene Glycol (Miralax) 17 gm PO DAILY PRN PRN Reason: Constipation Last Admin: 01/04/18 04:10 Dose: 17 gm Senna/Docusate Sodium (Senna Plus) 1 tab PO BID PRN PRN Reason: Constipation Last Admin: 01/04/18 09:44 Dose: 1 tab Discontinued Medications Bupivacaine HCl/Dextrose (Marcaine 0.75% Spinal) Confirm Administered Dose 2 ml .ROUTE .STK-MED ONE Stop: 01/01/18 12:55 Bupivacaine HCl/Epinephrine Bitart (Marcaine 0.5%/Epinephrine 1:200,000) Confirm Administered Dose 50 ml .ROUTE .STK-MED ONE Stop: 01/01/18 13:43 Last Admin: 01/01/18 16:45 Dose: 20 ml Ephedrine Sulfate (Ephedrine Sulfate) Confirm Administered Dose 50 mg .ROUTE .STK-MED ONE Stop: 01/01/18 16:28 Fentanyl (Sublimaze) Confirm Administered Dose 100 mcg .ROUTE .STK-MED ONE Stop: 01/01/18 12:52 Hydromorphone HCl (Dilaudid) 1 mg IVPUSH Q1H PRN PRN Reason: Pain Last Admin: 01/01/18 11:20 Dose: 1 mg Hydromorphone HCl (Dilaudid) 0.5 - 1 mg IVPUSH Q2H PRN PRN Reason: Pain (severe 7-10) Last Admin: 01/01/18 21:52 Dose: 1 mg Lactated Ringer's (Ringers, Lactated) 1,000 mls @ 125 mls/hr IV ASDIRECTED [facility] Last Admin: 01/02/18 00:30 Dose: 125 mls/hr Cefazolin Sodium/Dextrose 2 gm (/ Premix) 50 mls @ 100 mls/hr IV ONETIME ONE Stop: 01/01/18 15:29 Last Admin: 01/01/18 18:32 Dose: Not Given Lactated Ringer's (Ringers, Lactated) Confirm Administered Dose 1,000 mls @ as directed .ROUTE .STK-MED ONE Stop: 01/01/18 16:56 Cefazolin Sodium/Dextrose 2 gm (/ Premix) 50 mls @ 100 mls/hr IV Q8H [facility] Stop: 01/02/18 14:29 Last Admin: 01/02/18 13:54 Dose: 100 mls/hr Midazolam HCl (Versed 1 Mg/Ml) Confirm Administered Dose 2 mg .ROUTE .STK-MED ONE Stop: 01/01/18 12:53 Phenylephrine HCl (Ramana-Synephrine) Confirm Administered Dose 10 mg .ROUTE .STK- MED ONE Stop: 01/01/18 16:25 Povidone Iodine (Betadine 10% Soln) 1 ml .ROUTE .STK-MED ONE Stop: 01/01/18 14:01 Last Admin: 01/01/18 16:35 Dose: 30 ml Propofol (Diprivan 20 Ml) Confirm Administered Dose 200 mg .ROUTE .STK-MED ONE Stop: 01/01/18 12:53 Propofol (Diprivan 20 Ml) Confirm Administered Dose 200 mg .ROUTE .STK-MED ONE Stop: 01/01/18 16:29 - Exam Quality Assessment: Denies: Supplemental Oxygen General: Reports: Alert, Oriented, Cooperative, No Acute Distress Neck: Reports: Supple Lungs: Reports: Normal Respiratory Effort GI/Abdominal Exam: No Distention Extremities: No Pedal Edema Psy/Mental Status: Reports: Alert, Normal Affect *Q Meaningful Use (DIS) - VTE *Q VTE Pharmacological Contraindications *Q: Patient Scheduled Surgery
== END 2018-01-04 11:27 | disposition home or self-care (01) | DRG 482 ==
LOC: JP.ED 09:29 → JP.SDSSCHI 11:35 → JP.MS 12:36
PROVIDERS: ADMIT Internal Medicine; ATTEND Internal Medicine
PROC: 0QS706Z Reposition Left Upper Femur with Intramedullary Internal Fixation Device, Open Approach (ICD-10-PCS; principal; 2018-01-01)
DX: S72.142A Displaced intertrochanteric fracture of left femur, initial encounter for closed fracture (principal); S72.22XA Displaced subtrochanteric fracture of left femur, initial encounter for closed fracture; W01.0XXA Fall on same level from slipping, tripping and stumbling without subsequent striking against object, initial encounter; Y92.003 Bedroom of unspecified non-institutional (private) residence as the place of occurrence of the external cause; Z86.69 Personal history of other diseases of the nervous system and sense organs; M25.552 Pain in left hip; F17.210 Nicotine dependence, cigarettes, uncomplicated; M62.81 Muscle weakness (generalized); N31.9 Neuromuscular dysfunction of bladder, unspecified; R33.8 Other retention of urine; G62.9 Polyneuropathy, unspecified
CPT/HCPCS: 36415; 71045 ×2; 73501 ×2; 80053; 81001; 85025; 93005; 96374; 99285; J1170; 51702; 80048; 85018; 85027; 94640; 97110-GP; 97116-GP; 97161-GP; 97165-GO; 97530-GP; 97535-GP; A9270-GY; J0690; J2250; J2370; J2704; J3010; J7120